=== PATIENT | female | born 1955 | race Caucasian/White ===

== ENCOUNTER 2018-09-13 11:22 | Emergency (ER) | payer OTHER ==
[~2018-09-13] VITALS: Ht 160 cm; Wt 79.4 kg
--- NOTE | 2018-09-13 11:40 | NUR ---
BIBA RA 860 "Mechanical trip/fell on sidewalk NO LOC now c/o nose Left elbow/knee pain". Patient is awake and alert to self, day, and place. Facial lac noted on the nose, mild bleeding noted, covered with gauze at this time. Attached to the monitor.
[2018-09-13] MEDS ORDERED: LIDOCAINE 0.5% HCL 50 ML VIAL ONE (11:42)
[2018-09-13] MEDS ORDERED: LIDOCAINE 1% INJ 50 ML MDV IJ ONE (12:00)
[2018-09-13] MEDS ORDERED: TDAP [DIPH/PERTUSSIS/TET] 0.5 ML VIAL IM ONE ×2 (12:00→12:01)
[2018-09-13] MEDS ORDERED: ACETAMINOPHEN ES 500 MG TABLET PO ONE (12:00)
[2018-09-13] MEDS ORDERED: ACETAMINOPHEN ES 500 MG TABLET ONE (12:01)
--- NOTE | 2018-09-13 12:45 | NUR ---
TRANSFERRED TO CT.
--- NOTE | 2018-09-13 13:30 | NUR ---
AT BEDSIDE FOR STITCHES.
--- NOTE | 2018-09-13 14:58 | NUR ---
PATIENT IN NO DSITRESS. A/OX4, C/O MILD PAIN BUT TOLERABLE AT THIS TIME.
--- NOTE | 2018-09-13 15:21 | NUR ---
Patient ambulatory with a steady gait, Patient discharged to home in stable condition. Written and verbal after care instructions given. Patient verbalizes understanding of instruction.
[2018-09-13 15:23] VITALS: BP 134/89
== END 2018-09-13 15:25 | disposition home or self-care (01) ==
LOC: ER 11:26
DX: S02.2XXA Fracture of nasal bones, initial encounter for closed fracture (principal); S52.122A Displaced fracture of head of left radius, initial encounter for closed fracture; S01.21XA Laceration without foreign body of nose, initial encounter; S80.02XA Contusion of left knee, initial encounter; S09.8XXA Other specified injuries of head, initial encounter; M50.320 Other cervical disc degeneration, mid-cervical region, unspecified level; Z90.49 Acquired absence of other specified parts of digestive tract; Z98.890 Other specified postprocedural states; W01.0XXA Fall on same level from slipping, tripping and stumbling without subsequent striking against object, initial encounter; Y93.89 Activity, other specified; Y92.481 Parking lot as the place of occurrence of the external cause; Y99.8 Other external cause status
CPT/HCPCS: 12011; 29105; 70450; 70486; 72125; 73080; 73090; 73110; 90471; 90715; 99284; A6403; J3490